=== PATIENT | male | born 2000 | race Caucasian/White ===

== ENCOUNTER 2024-10-16 17:18 | Emergency (ER) | payer MEDICAID, SELFPAY ==
[2024-10-16 17:31] VITALS: BP 156/104; PULSE 80; RESP 20; TEMP 36.7; O2SAT 96; BMI 32.1
--- NOTE | 2024-10-16 17:32 | XR_ITS ---
Examination: Testicular sonography complete TECHNIQUE: Sosa scale sonographic images testes, assessment arterial inflow and venous outflow Doppler spectrum analysis color flow analysis Date and time: October 16, 2024 1900 hours INDICATIONS: Patient states left testicle twisted at 5:00 PM today FINDINGS: Right testis 3.9 cm epididymis 1.3 cm 3 mm right epididymal cyst Arterial flow to the testicle. No testicular mass Minimal varicocele Minimal hydrocele Left testis 4.2 cm epididymis 1.1 cm Arterial flow to the testicle Minimal varicocele Minimal hydrocele IMPRESSION: No testicular torsion or testicular Mass. Recommend short-term follow-up as clinically warranted
--- NOTE | 2024-10-16 17:32 | PD.EDRME ---
Rapid Medical Screening Exam E Arrival date/time: 10/16/24 17:18 24-year-old male with no known medical history presents to the emergency room with a chief complaint of left-sided testicular pain and swelling. Patient states the pain began 30 minutes ago when he woke up from a nap. I have greeted and performed a focused initial assessment of this patient. A comprehensive ED assessment and evaluation of the patient, analysis of all test results, and completion of the medical decision making process will be conducted by additional ED providers. Chief Complaint: Urogenital-Male Vital signs: Vital Signs Temperature 98.1 F 10/16/24 17:31 Pulse Rate 80 10/16/24 17:31 Respiratory Rate 20 10/16/24 17:31 Blood Pressure 156/104 H 10/16/24 17:31 Pulse Oximetry (%) 96 10/16/24 17:31 Oxygen Delivery Method Room Air 10/16/24 17:31 Vital signs reviewed by provider: Yes
[2024-10-16 18:08] LABS: Basophils # (Auto) 0.1 Thou/mm3 (0.0-0.2); Basophils % (Auto) 1 % (0-2.5); Eosinophils % (Auto) 7 % (0-10); Hematocrit 47.9 % (41.0-53.0); Hemoglobin 16.6 g/dL (13.5-16.0); Immature Granulocytes % (Auto) 1 % (0-0); Lymphocytes # (Auto) 4.1 Thou/mm3 (1.0-4.8); Lymphocytes % (Auto) 30 % (10-50); Mean Corpuscular HGB Conc 34.7 g/dl (31.0-37.0); Mean Corpuscular Volume 84 fL (80-100); Monocytes # (Auto) 0.8 Thou/mm3 (0.0-0.8); Monocytes % (Auto) 6 % (0-12); Neutrophils # (Auto) 7.5 Thou/mm3 (1.8-7.7); Neutrophils % (Auto) 55 % (37-80); Nucleated Red Blood Cell % 0 /100 WBC (0); Platelet Count 444 Thou/mm3 (140-440); RDW Standard Deviation 42.4 fL (35.1-43.9); Red Blood Count 5.72 Miln/mm3 (4.50-5.90); White Blood Count 13.6 Thou/mm3 (3.8-10.6)
[2024-10-16 18:27] LABS: Alanine Aminotransferase 68 U/L (10-49); Albumin/Globulin Ratio 1.8 (1.2-2.2); Alkaline Phosphatase 93 U/L (46-116); Anion Gap 9 (7-16); Aspartate Amino Transferase 34 U/L (0-34); BUN/Creatinine Ratio 7 Ratio (12-20); Bilirubin,Total 0.9 mg/dL (0.3-1.2); Blood Urea Nitrogen 8 mg/dL (9-23); Calcium 9.7 mg/dL (8.3-10.6); Calcium (Corrected) 9.7 mg/dL (8.5-10.1); Carbon Dioxide 25.2 mMol/L (20.0-31.0); Chloride 106 mMol/L (98-107); Creatinine (Component) 1.1 mg/dL (0.6-1.3); Estimated Creatinine Clearance 125.1 mL/min (>60); Globulin 2.8 gm/dL (2.3-3.5); Glucose 97 mg/dL (74-106); Osmolality,Calculated 277 (275-295); Potassium 3.8 mMol/L (3.4-5.1); Sodium 140 mMol/L (136-145); Total Protein 7.8 gm/dL (5.7-8.2); eGFR > 60 See Note
[2024-10-16 19:48] LABS: Collection Type, Urine Clean Catch
[2024-10-16 20:08] LABS: Bilirubin,Urine Negative (Negative); Blood,Urine Negative (Negative); Clarity,Urine Clear (Clear/Hazy); Color,Urine Lt-Yellow (Lt Yel-Yel); Culture Indicated,Urine Not Indicated; Glucose, Urine Negative (Negative); Ketones,Urine Negative (Negative); Leukocyte Esterase,Urine Negative (Negative); Nitrite,Urine Negative (Negative); PH,Urine 5.5 (5.0-7.0); Protein,Urine Negative (Neg - Trace); RBC,Urine 3 /hpf (0-3); Specific Gravity,Urine 1.024 (1.001-1.035); Squamous Epithelial Cell,Urine < 1 /hpf (0-5); Urobilinogen,Urine Negative mg/dL (0.0-1.0); WBC,Urine < 1 /hpf (0-5)
[2024-10-16 21:03] VITALS: BP 155/89; PULSE 76; RESP 18; TEMP 37; O2SAT 97
--- NOTE | 2024-10-16 21:03 | EDNOTE_ITS ---
<Statement entered by Mira Ash MD - 10/16/24 23:28> As co-signing physician, I was present and available for consult prn. I concur with the plan and care as documented by the midlevel provider. ED Male Genitalurinary RME/HPI General Chief complaint: Urogenital-Male Stated complaint: Left testicle twisted Time Seen by Provider: 10/16/24 21:02 Arrival date/time: 10/16/24 17:18 RME / HPI RME / HPI Narrative: 24-year-old male with no known medical history presents to the emergency room with a chief complaint of left-sided testicular pain and swelling. Patient states the pain began 30 minutes ago when he woke up from a nap. Denies any dysuria denies any fever denies any other complaints no medications taken prior to arrival. Related Data Home Medications ?Medication ?Instructions ?Recorded ?Confirmed No Known Home Medications 11/29/2111/20 Allergies Allergy/AdvReac Type Severity Reaction Status Date / Time Penicillins Allergy Unknown Verified 10/16/24 17:20 Review of Systems Review of Systems Narrative Review of Systems: Review of system reviewed and within normal limits except mentioned in HPI ED Exam Narrative Physical exam: VITAL SIGNS: Reviewed. GENERAL APPEARANCE: Alert and interactive, follows commands, no acute distress, HEAD AND FACE: Non-traumatic. ENT: PERRL, pink conjunctivitis, eyelid no trauma, Mucous membrane moist. NECK: Supple, nontender, no nuchal rigidity. CHEST: No tenderness, no crepitus, no paradoxical movement, no retractions. LUNGS: Clear, well ventilated, symmetric, no rales, no wheezing, no ronchi, no stridor, good breath sounds bilaterally. HEART: Regular rate, regular rhythm, no murmur, no gallops. ABDOMEN: Soft, positive bowel sounds, nondistended, no guarding, nontender, no rebound, no masses, RECTAL: Deferred. GENITAL: Examination was done by me, I asked the patient if we needed to heparin, patient told me that he does not want any beauty specialist I did not notice any redness swelling of the testicle, no tenderness also. NEUROLOGICAL: Gross motor function intact sensory function intact, Appropriate for age. MUSCULOSKELETAL: low back nontender, full range of motion. EXTREMITIES: Nontender, full range of motion. SKIN: Color pink, dry, no rash, no lacerations, no abrasions, no contusions. LYMPHATICS: Deferred. Course Quality Measures none Orders Category Date Time Status US testicular Stat Exams 10/16/24 17:32 Completed CBC Stat Lab 10/16/24 17:42 Completed CMP [Comprehensive Metabolic Panel] Stat Lab 10/16/24 17:42 Completed UA, C/S IF [Urinalysis, C/S if Indicated] Stat Lab 10/16/24 19:22 Completed Vital Signs Vital signs: Vital Signs Temperature 98.1 F 10/16/24 17:31 Pulse Rate 80 10/16/24 17:31 Respiratory Rate 20 10/16/24 17:31 Blood Pressure 156/104 H 10/16/24 17:31 Pulse Oximetry (%) 96 10/16/24 17:31 Oxygen Delivery Method Room Air 10/16/24 17:31 Urogenital - Male MDM Narrative MDM Narrative:: 24-year-old male with no known medical history presents to the emergency room with a chief complaint of left-sided testicular pain and swelling. Patient states the pain began 30 minutes ago when he woke up from a nap. Denies any dysuria denies any fever denies any other complaints no medications taken prior to arrival. Ultrasound of the testicle, unremarkable. Laboratory workup including urinalysis came back unremarkable. Results discussed with the patient. Patient data External records reviewed:: None Clinical information provided by:: patient Social determinants that could affect healthcare access:: none Patient has the following chronic illnesses:: None How is presenting disease/condition affected by chronic disease/condition?: no chronic disease Evaluation data The following diagnostics were reviewed and interpreted by me:: lab results and radiology exam(s) Lab and/or radiology exams considered but not ordered:: None Interpretation Summary: See results MDM Medications / Prescriptions Medications or Prescriptions considered but not ordered:: None Medication administrations:: None Consultations Consultation(s) initiated? (list below): No Diagnosis Urogenital Male Differential Diagnosis: urinary tract infection and other (Testicular pain, testicular torsion) Most likely diagnosis given after review of the tests above:: testicular pain Admission Indicated Admission indicated?: not indicated Admission Request Was there a request for admission?: No Disposition Plan Disposition Plan: Discharge Discharge Attestation Discharge Attestation: The patient and all family members were given an opportunity to ask questions and understood the discharge instructions. Discharge instructions specifically effects, indications for sooner follow up or return to the emergency department, and the expected course of current diagnosis. Patient condition: Stable Discharge Plan Plan Patient Disposition: HOME (Self Care) Discharge Disposition comment: Stable Prescriptions/Referrals Prescriptions/Med Rec: No Action No Known Home Medications Referrals: No Primary/Family,Physician [Primary Care Provider] - In 1 week Problem List Clinical Impression: Testicle pain Patient/Caregiver Discharge Instructions Discharge Activity: activity as tolerated Education Materials: ED Testicular Pain, Unclear Cause Additional Instructions: Thank you for the opportunity for serving you today. You are stable for discharged . You are advised to: Follow-up with your PCP in 1 to 2 days Return to ED for worsening of symptoms Print Language: Argentine Stand Alone Forms: Ashley Award Info., Patient Portal Info Letter YOANA/AMINATA Supervising Physician YOANA/AMINATA Supervising Physician: MD Nilsa
== END 2024-10-16 21:10 | disposition home or self-care (01) ==
PROVIDERS: Nurse Practitioner Family; Emergency Provider Emergency Medicine
DX: N50.812 Left testicular pain (principal)
CPT/HCPCS: 36415; 76870; 80053; 81001; 85025; 99284

== ENCOUNTER 2024-10-23 21:23 | Emergency (ER) | payer MEDICAID, SELFPAY ==
[2024-10-23 21:24] VITALS: BMI 32.1
[2024-10-23 21:28] VITALS: BP 141/86; PULSE 96; RESP 20; TEMP 36.8; O2SAT 97
--- NOTE | 2024-10-23 21:31 | XR_ITS ---
Examination: Testicular sonography complete TECHNIQUE: Sosa scale sonographic images stenoses, assessment arterial inflow venous outflow Doppler spectrum analysis clinical flow analysis INDICATION: Testicle out of place today FINDINGS: Right testis is 4.1 cm epididymis 1.2 cm 3 mm epididymal cyst Arterial Stubbs testicle. No testicular mass. Moderate varicocele Left testis 3.9 cm Epididymis 13 mm Arterial flow of the testicle. No testicular Mass. Moderate varicocele. Mild bilateral hydroceles IMPRESSION: No testicular torsion or testicular Mass. Moderate bilateral varicoceles
--- NOTE | 2024-10-23 21:31 | PD.EDMALE ---
ED Male Genitalurinary RME/HPI General Chief complaint: Urogenital-Male Stated complaint: RIGHT SIDE TESTICLE SWELLING Time Seen by Provider: 10/23/24 21:26 Arrival date/time: 10/23/24 21:23 RME / HPI RME / HPI Narrative: This section includes all my notes and documentations, including HPI, PE, and ED course. Delvin Archuleta MD HPI: 24 y/o male presents with right testicular swelling x 1 hour. Patient reports testicular torsion at least 4 times this year alone. No other complaints. ROS: All negative except as documented in HPI. Physical Exam: General: Alert and oriented. No acute distress when remaining still. Eyes: Conjunctivae and lids clear. ENT: No nasal congestion. Neck: Supple. Lungs: No respiratory distress. Skin: Warm and dry. Neuro: Alert and oriented X 3. Genitalia: Completely normal external anatomy. No testicular erythema/edema/calor/tenderness. I reviewed all diagnostic test results: My review of the US report is: No testicular torsion or testicular Mass. Moderate bilateral varicoceles. UA unremarkable. At this point, diagnoses include: BL varicocele. Recommended outpatient care. Based on my best medical judgment, made decision no further evaluation or treatment indicated at this time. Patient understands and agrees to the discharge instructions customized and printed, see below. Discharge Instructions from Dr. Archuleta printed for you: 1. After evaluation, you do not have testicular torsion. 2. But you have varicoceles, see attached handout. 3. For this, you don't need emergent intervention. 4. But you need to see a private doctor outside the ER on 10/26/2024 to get referral to see urologist. To help you prevent future complications. 5. Seek immediate medical care with worsening or with any concerns. Delvin Archuleta MD Related Data Home Medications ?Medication ?Instructions ?Recorded ?Confirmed No Known Home Medications 11/29/21 11/29/21 Allergies Allergy/AdvReac Type Severity Reaction Status Date / Time Penicillins Allergy Unknown Verified 10/16/24 17:20 Review of Systems Review of Systems Systems Reviewed: All systems reviewed, normal except as documented Past Medical History Social History SMOKING STATUS: Current every day smoker ED Exam Narrative Physical exam: Refer to [facility] Course Quality Measures none Orders Category Date Time Status US testicular Stat Exams 10/23/24 21:31 Completed UA, C/S IF [Urinalysis, C/S if Indicated] Stat Lab 10/23/24 22:00 Completed Vital Signs Vital signs: Vital Signs Temperature 98.3 F 10/23/24 21:28 Pulse Rate 96 10/23/24 21:28 Respiratory Rate 20 10/23/24 21:28 Blood Pressure 141/86 H 10/23/24 21:28 Pulse Oximetry (%) 97 10/23/24 21:28 Oxygen Delivery Method Room Air 10/23/24 21:28 Urogenital - Male MDM Narrative MDM Narrative:: Scribe Attestation: I, Eliza Nieves, am scribing for and in the presence of Dr. Archuleta. Provider Notation: Although this document has been carefully reviewed, there may still be some phonetic and other typographical errors.? These errors are purely grammatical due to imperfections in the software program and should not be construed in any way to? compromise the substance of the patient's medical care during this visit. 24 y/o male presents with right testicular swelling x 1 hour. Patient reports testicular torsion at least 4 times this year alone. No other complaints. Patient data External records reviewed:: [facility] previous records (Reviewed prior ED records from 10/16/24. Patient was seen for Testicle pain.) Clinical information provided by:: patient Social determinants that could affect healthcare access:: none Patient has the following chronic illnesses:: None reported How is presenting disease/condition affected by chronic disease/condition?: no chronic disease Evaluation data The following diagnostics were reviewed and interpreted by me:: lab results and radiology exam(s) Lab and/or radiology exams considered but not ordered:: None Interpretation Summary: I reviewed all diagnostic test results: My review of the US report is: No testicular torsion or testicular Mass. Moderate bilateral varicoceles. Urine tests unremarkable. Medications / Prescriptions Medications or Prescriptions considered but not ordered:: None Medication administrations:: N/A Consultations Consultation(s) initiated? (list below): No Diagnosis Urogenital Male Differential Diagnosis: priapism, urethritis, epididymitis, acute retention of urine, inguinal hernia and other (Orchitis, Testicular torsion) Most likely diagnosis given after review of the tests above:: BL varicocele Admission Indicated Admission indicated?: not indicated Explain why admission is indicated or not indicated:: With no condition needing emergent intervention, there was no indication for admission. Admission Request Was there a request for admission?: No Disposition Plan Disposition Plan: Discharge Discharge Attestation Discharge Attestation: The patient and all family members were given an opportunity to ask questions and understood the discharge instructions. Discharge instructions specifically effects, indications for sooner follow up or return to the emergency department, and the expected course of current diagnosis. Patient condition: Stable Discharge Plan Plan Patient Disposition: HOME (Self Care) Prescriptions/Referrals Prescriptions/Med Rec: No Action No Known Home Medications Referrals: No Primary/Family,Physician [Primary Care Provider] - In 1 week Problem List Clinical Impression: Bilateral varicoceles Patient/Caregiver Discharge Instructions Discharge Activity: activity as tolerated Education Materials: ED Varicocele Additional Instructions: Discharge Instructions from Dr. Archuleta printed for you: 1. After evaluation, you do not have testicular torsion. 2. But you have varicoceles, see attached handout. 3. For this, you don't need emergent intervention. 4. But you need to see a private doctor outside the ER on 10/26/2024 to get referral to see urologist. To help you prevent future complications. 5. Seek immediate medical care with worsening or with any concerns. Print Language: Sami Stand Alone Forms: Ashley Award Info., Patient Portal Info Letter
[2024-10-23 22:16] LABS: Collection Type, Urine Clean Catch; Squamous Epithelial Cell,Urine 0 /hpf (0-5)
[2024-10-23 22:24] LABS: Bilirubin,Urine Negative (Negative); Blood,Urine Negative (Negative); Clarity,Urine Clear (Clear/Hazy); Color,Urine Colorless (Lt Yel-Yel); Culture Indicated,Urine Not Indicated; Glucose, Urine Negative (Negative); Ketones,Urine Negative (Negative); Leukocyte Esterase,Urine Negative (Negative); Nitrite,Urine Negative (Negative); PH,Urine 6.0 (5.0-7.0); Protein,Urine Negative (Neg - Trace); RBC,Urine 1 /hpf (0-3); Specific Gravity,Urine 1.005 (1.001-1.035); Urobilinogen,Urine Negative mg/dL (0.0-1.0); WBC,Urine < 1 /hpf (0-5)
== END 2024-10-24 00:02 | disposition home or self-care (01) ==
PROVIDERS: Emergency Provider Emergency Medicine
DX: I86.1 Scrotal varices (principal)
CPT/HCPCS: 76870; 81001; 99284